=== PATIENT | male | born 1975 | race Caucasian/White ===

== ENCOUNTER 2018-02-08 10:04 | Emergency (ER) | payer OTHER ==
--- NOTE | 2018-02-08 11:49 | ED Physician Documentation ---
History of Present Illness - Stated complaint Stated Complaint: R SHOULDER PX - Chief complaint Chief Complaint: Ext Problem - Additonal information Additional information: hx from pt 42 male to ER with burning pains down right arm no fever no neck pain seems to start in the lateral scapula area and rad to 5th finger no CP or abd pain pain no numbness or weakness Review of Systems Constitutional: denies: Fever Cardiac: denies: Chest pain / pressure Respiratory: denies: Dyspnea GI: denies: Abdominal Pain, Nausea, Vomiting Neurologic: denies: Focal weakness, Numbness Endocrine: denies: Easy bruising / bleeding Immunocompromised: denies: Immunocompromised PD PAST MEDICAL HISTORY - Past Medical History Past Medical History: No - Present Medications Home Medications: Ambulatory Orders Medication Instructions Recorded Confirmed Cyclobenzaprine [Flexeril] 10 mg PO TID PRN #20 tablet 02/08/18 Lidocaine Patch 5% [Lidoderm Patch] 1 patch TOP DAILY PRN #10 patch 02/08/18 predniSONE [Deltasone] 60 mg PO DAILY 3 Days #9 tablet 02/08/18 - Allergies Allergies/Adverse Reactions: Allergies Allergy/AdvReac Type Severity Reaction Status Date / Time No Known Drug Allergies Allergy Verified 02/08/18 10:14 - Social History Does the pt smoke?: Yes Smoking Status: Current every day smoker Does the pt drink ETOH?: No Does the pt have substance abuse?: No - Immunizations Immunizations are current?: No Immunizations: TDAP >10years/unknown PD ED PE NORMAL - Vitals Vital signs reviewed: Yes - HEENT HEENT: Atraumatic - Neck Neck: Supple, no meningeal sign, No bony TTP (and no redness swelling warmth) - Cardiac Cardiac: RRR - Respiratory Respiratory: No respiratory distress - Abdomen Abdomen: Soft, Non tender - Derm Derm: Other - Extremities Extremities: No deformity, Other (shoulder ABD elbow 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, nl senation, + cap refill) Results - Vitals Vitals: Vital Signs - 24 hr 02/08/18 10:12 Temperature 36.8 C Heart Rate 100 Respiratory 16 Rate Blood Pressure 145/80 H O2 Saturation 100 Oxygen O2 Source Room air Departure - Departure Clinical Impression: Radicular pain in right arm Condition: Good Instructions: ED Cervical Radiculopathy Follow-Up: [facility] [Provider Group] Prescriptions: Cyclobenzaprine [Flexeril] 10 mg PO TID PRN #20 tablet PRN Reason: muscle spasm Lidocaine Patch 5% [Lidoderm Patch] 1 patch TOP DAILY PRN #10 patch PRN Reason: pain predniSONE [Deltasone] 60 mg PO DAILY 3 Days #9 tablet Comments: The pain seems to be from a pinched nerve, likely the C8 nerve given the distribution of the pain The steroids should help relieve the burning nerve pain The flexeril and lidocaine will help the shoulder pain. You can also take tylenol Please follow up with orthopedics if not better by next week. Return if worse
[2018-02-08] MEDS ORDERED: DEXAMETHASONE 10 MG/ML VIAL PO STA (11:52)
[2018-02-08] MEDS ORDERED: LIDOCAINE PATCH 5% TOP STA (11:52)
[2018-02-08 12:05] VITALS: BP 130/90
== END 2018-02-08 12:04 | disposition home or self-care (01) ==
LOC: ED 10:04
DX: M79.601 Pain in right arm (principal)
CPT/HCPCS: 99283; A9270

== ENCOUNTER 2018-04-04 09:13 | Emergency (ER) | payer OTHER ==
[2018-04-04] MEDS ORDERED: IBUPROFEN 800 MG TABLET PO STA (09:33)
--- NOTE | 2018-04-04 10:06 | ED Physician Documentation ---
PD HPI HEENT - Stated complaint Stated Complaint: FEVER/COUGH - Chief complaint Chief Complaint: Resp - History obtained from History obtained from: Patient - History of Present Illness Timing - onset: How many days ago (5) Timing - duration: Days (5) Timing - details: Still present Location: Throat Worsens: [place] Associated symptoms: Fever, Cough Similar symptoms before: Has not had sx before - Additional information Additional information: The patient is a 42-year-old male who presents with sore throat, cough and fever. His symptoms started 5 days ago and have become progressively worse. His cough is nonproductive. He reports occasional headache. His son has been sick with similar symptoms. He denies history of similar symptoms in the past. Review of Systems Constitutional: reports: Fever, Fatigue Eyes: denies: Irritation Ears: denies: Ear pain Nose: denies: Congestion Throat: reports: Sore throat Cardiac: denies: Chest pain / pressure Respiratory: reports: Cough. denies: Dyspnea GI: denies: Abdominal Pain, Nausea, Vomiting : denies: Dysuria Skin: denies: Rash Musculoskeletal: denies: Neck pain Neurologic: reports: Headache. denies: Focal weakness, Numbness PD PAST MEDICAL HISTORY - Past Medical History Cardiovascular: None Respiratory: None Endocrine/Autoimmune: None - Present Medications Home Medications: Ambulatory Orders Medication Instructions Recorded Confirmed Gabapentin 300 mg PO TID 04/04/18 04/04/18 Penicillin V Potassium 500 mg PO Q6HR #40 tablet 04/04/18 - Allergies Allergies/Adverse Reactions: Allergies Allergy/AdvReac Type Severity Reaction Status Date / Time No Known Drug Allergies Allergy Verified 04/04/18 09:21 - Social History Does the pt smoke?: Yes Smoking Status: Current every day smoker Does the pt drink ETOH?: No Does the pt have substance abuse?: No - Immunizations Immunizations are current?: No Immunizations: TDAP >10years/unknown PD ED PE NORMAL - Vitals Vital signs reviewed: Yes (Tachycardia, and borderline hypertension.) - General General: Alert and oriented X 3, Well developed/nourished - HEENT HEENT: Atraumatic, EOMI, Ears normal, Other (Oropharynx is erythematous, without exudates.) - Neck Neck: Supple, no meningeal sign, Other (Mildly enlarged anterior cervical nodes bilaterally.) - Cardiac Cardiac: No murmur, Other (Slightly rapid rate, regular rhythm.) - Respiratory Respiratory: No respiratory distress, Clear bilaterally - Abdomen Abdomen: Soft, Non tender - Back Back: No CVA TTP - Derm Derm: No rash - Extremities Extremities: No edema, No calf tenderness / cord - Neuro Neuro: Alert and oriented X 3, No motor deficit, Normal speech Results - Vitals Vitals: Oxygen O2 Source Room air PD MEDICAL DECISION MAKING - ED course Complexity details: considered differential, d/w patient, d/w family ED course: The patient's symptoms are consistent with streptococcal pharyngitis, and his son, who accompanies him in the emergency department, tested positive for rapid strep. His presentation does not suggest peritonsillar abscess or pneumonia. Treatment in the emergency department included administration of ibuprofen 800 mg orally. He is being discharged with a prescription for penicillin. I discussed with him and his son the expected course of illness, antibiotic treatment and outpatient follow-up, as well as potentially worrisome signs or symptoms that should prompt reevaluation in the emergency department. Departure - Departure Disposition: 01 Home, Self Care Clinical Impression: Strep pharyngitis Condition: Stable Instructions: ED Strep Pharyngitis Poss Prescriptions: Penicillin V Potassium 500 mg PO Q6HR #40 tablet Comments: Gargle with cool liquids. You can use Tylenol or ibuprofen if needed for fever or discomfort. Take penicillin 4 times daily as prescribed. Follow-up with primary physician within 2 weeks if possible. Call to schedule an appointment. Return to the emergency department if you develop increasing difficulty swallowing, or otherwise worsening symptoms. Forms: Activity restrictions Discharge Date/Time: 04/04/18 10:14
[2018-04-04 10:14] VITALS: BP 136/82
== END 2018-04-04 10:14 | disposition home or self-care (01) ==
LOC: ED 09:13
DX: J02.0 Streptococcal pharyngitis (principal); F17.200 Nicotine dependence, unspecified, uncomplicated
CPT/HCPCS: 99283; A9270

== ENCOUNTER 2018-04-07 12:22 | Emergency (ER) | payer MEDICAID, OTHER ==
--- NOTE | 2018-04-07 13:18 | ED Physician Documentation ---
PD HPI URI - Stated complaint Stated Complaint: FEVER/COUGH - Chief complaint Chief Complaint: Resp - History obtained from History obtained from: Patient - History of Present Illness Timing - onset: How many days ago (8-9) Timing duration: Days (8-9) Timing details: Gradual onset, Still present Associated symptoms: Fever, Nasal congestion, Productive cough (more productive in the past few days), Dyspnea. No: Swollen nodes, Hemoptysis, NVD Contributing factors: No: Sick contact, COPD / asthma Worsened by: Activity Recently seen: Emergency Dept (several days ago, and has developed more cough and fevers since that time.) Review of Systems Constitutional: reports: Fever, Myalgias Nose: reports: Rhinorrhea / runny nose, Congestion Throat: reports: Sore throat Cardiac: denies: Chest pain / pressure Respiratory: reports: Cough (increased the past few days) GI: denies: Vomiting, Diarrhea Skin: denies: Rash PD PAST MEDICAL HISTORY - Past Medical History Cardiovascular: None Respiratory: None Endocrine/Autoimmune: None - Present Medications Home Medications: Ambulatory Orders Medication Instructions Recorded Confirmed Gabapentin 300 mg PO TID 04/04/18 04/04/18 Penicillin V Potassium 500 mg PO Q6HR #40 tablet 04/04/18 Albuterol Sulf [Ventolin Hfa 1 - 2 puffs INH Q4HR PRN #1 inhaler 04/07/18 Inhaler] Benzonatate [Tessalon Perle] 100 - 200 mg PO TID PRN #30 capsule 04/07/18 Dexamethasone [Decadron] 4 mg PO DAILY #5 tablet 04/07/18 Doxycycline Hyclate 100 mg PO BID #20 capsule 04/07/18 - Allergies Allergies/Adverse Reactions: Allergies Allergy/AdvReac Type Severity Reaction Status Date / Time No Known Drug Allergies Allergy Verified 04/07/18 12:29 - Social History Does the pt smoke?: Yes Smoking Status: Current every day smoker Does the pt drink ETOH?: No Does the pt have substance abuse?: No - Immunizations Immunizations are current?: No Immunizations: TDAP >10years/unknown PD ED PE NORMAL - Vitals Vital signs reviewed: Yes - General General: Alert and oriented X 3, No acute distress, Well developed/nourished - HEENT HEENT: Pharynx benign - Neck Neck: Supple, no meningeal sign, No adenopathy - Cardiac Cardiac: RRR, No murmur - Respiratory Respiratory: Clear bilaterally (lungs clear; congested sounds hilar area with cough.) - Abdomen Abdomen: Soft, Non tender - Derm Derm: Normal color, Warm and dry - Extremities Extremities: No tenderness to palpate, Normal ROM s pain, No edema, No calf tenderness / cord - Neuro Neuro: Alert and oriented X 3, No motor deficit, Normal speech Results - Vitals Vitals: Vital Signs - 24 hr 04/07/18 04/07/18 12:26 14:04 Temperature 36.8 C Heart Rate 124 H 110 H Respiratory 16 16 Rate Blood Pressure 145/91 H 140/88 H O2 Saturation 96 98 Oxygen O2 Source Room air - Labs Labs: Laboratory Tests 04/07/18 12:30 Influenza A (Rapid) Negative Influenza B (Rapid) Negative PD MEDICAL DECISION MAKING - ED course Complexity details: considered differential (extended cough and now fevers/productive sputum. ), d/w patient Departure - Departure Disposition: 01 Home, Self Care Clinical Impression: Acute bronchitis Qualifiers: Bronchitis organism: unspecified organism Qualified Code(s): J20.9 - Acute bronchitis, unspecified Condition: Stable Record reviewed to determine appropriate education?: Yes Instructions: ED Upper Resp Infec Abx Tx Prescriptions: Albuterol Sulf [Ventolin Hfa Inhaler] 1 - 2 puffs INH Q4HR PRN #1 inhaler PRN Reason: Shortness Of Air/Wheezing Benzonatate [Tessalon Perle] 100 - 200 mg PO TID PRN #30 capsule PRN Reason: Cough Dexamethasone [Decadron] 4 mg PO DAILY #5 tablet Doxycycline Hyclate 100 mg PO BID #20 capsule Comments: Drink lots of fluids. Tylenol or ibuprofen for fevers and pains. Doxycycline antibiotic for presumed bacterial secondary infection at this point. Decadron steroid for inflammation of the airways. Use albuterol inhaler 2 puffs 4 times a day to help reduce coughing and improve breathing. Tessalon if needed for cough. Recheck if not improving over the next several days or so. Discharge Date/Time: 04/07/18 14:04
[2018-04-07 14:05] VITALS: BP 140/88
== END 2018-04-07 14:04 | disposition home or self-care (01) ==
LOC: ED 12:22
DX: J20.9 Acute bronchitis, unspecified (principal); F17.200 Nicotine dependence, unspecified, uncomplicated
CPT/HCPCS: 87275; 87276; 99283

== ENCOUNTER 2020-07-31 17:53 | Emergency (ER) | payer MEDICAID, OTHER ==
[2020-07-31 18:12] VITALS: BP 129/93
[2020-07-31 18:33] LABS: RAPID STREP SCREEN Negative (Negative)
[2020-07-31] MEDS ORDERED: predniSONE 20 MG TABLET PO STA (18:39)
--- NOTE | 2020-07-31 18:40 | ED Physician Documentation ---
PD HPI HEENT - Stated complaint Stated Complaint: SORE THROAT,FEVER - Chief complaint Chief Complaint: Heent - History obtained from History obtained from: Patient (2 days of sore throat with fever to 100.5. There is no associated runny nose or cough. No myalgias.) Review of Systems Ten Systems: 10 systems reviewed and negative Constitutional: reports: Fever, Chills Nose: denies: Rhinorrhea / runny nose, Congestion Throat: reports: Sore throat PD PAST MEDICAL HISTORY - Past Medical History Cardiovascular: None Respiratory: None Endocrine/Autoimmune: None - Past Surgical History Past Surgical History: Yes - Present Medications Home Medications: Ambulatory Orders Medication Instructions Recorded Confirmed predniSONE [Deltasone] 60 mg PO DAILY 5 Days #15 tablet 07/31/20 - Allergies Allergies/Adverse Reactions: Allergies Allergy/AdvReac Type Severity Reaction Status Date / Time No Known Drug Allergies Allergy Verified 07/31/20 18:11 - Social History Does the pt smoke?: Yes Smoking Status: Current every day smoker Does the pt drink ETOH?: No Does the pt have substance abuse?: No - Immunizations Immunizations are current?: No Immunizations: TDAP >10years/unknown - POLST Patient has POLST: No PD ED PE NORMAL - Vitals Vital signs reviewed: Yes - General General: Alert and oriented X 3, No acute distress - HEENT HEENT: Other (Cobblestoning in the back of the throat, no tonsillar exudate or swelling. Supple neck, no adenopathy) - Neck Neck: Supple, no meningeal sign, No bony TTP - Neuro Neuro: Alert and oriented X 3, Normal speech Results - Vitals Vitals: Vital Signs - 24 hr 07/31/20 18:09 Temperature 36.5 C Heart Rate 105 H Respiratory 16 Rate Blood Pressure 129/93 H O2 Saturation 99 Oxygen O2 Source Room air - Labs Labs: Laboratory Tests 07/31/20 18:14 Group A Strep Rapid Negative Departure - Departure Disposition: 01 Home, Self Care Clinical Impression: Viral pharyngitis Condition: Good Record reviewed to determine appropriate education?: Yes Instructions: ED Pharyngitis Viral Report Pending Prescriptions: predniSONE [Deltasone] 60 mg PO DAILY 5 Days #15 tablet Comments: As discussed, the initial strep test is negative but we are performing a throat culture. If a bacterial pathogen is isolated we will call you in a few days for antibiotics. Otherwise at this point it does not seem that antibiotics are appropriate. Return for new or worsening symptoms. Should be better in a few days without specific therapy.
--- OUTSIDE RECORDS SUMMARY | 2020-07-31 18:48 | EXTERNAL MEDICAL SUMMARY RPT | Continuity of Care Document ---
:1975 Demographics Phone Unavailable Preferred Language Unknown Marital Status Unknown Amish Affiliation Unknown Race Unknown Ethnic Group Unknown Author Organization [place] Address [address] [place] [address] Phone Allergies Encounters Medications Problems Results
== END 2020-07-31 18:59 | disposition home or self-care (01) ==
LOC: ED 17:53
DX: J02.8 Acute pharyngitis due to other specified organisms (principal); B97.89 Other viral agents as the cause of diseases classified elsewhere; F17.200 Nicotine dependence, unspecified, uncomplicated
CPT/HCPCS: 87070; 87077; 87430; 99283; J7512